=== PATIENT | male | born 1960 | race Caucasian/White ===

== ENCOUNTER 2016-07-08 11:28 | Emergency (ER) | payer OTHER ==
[2016-07-08 11:41] VITALS: BMI 30.4
[2016-07-08 11:49] VITALS: BP 123/76; PULSE 61; RESP 16; TEMP 97.9; O2SAT 100
--- NOTE | 2016-07-08 12:02 | ED PDOC ---
Arrival/HPI - General Chief Complaint: Back Pain Time Seen by Provider: 07/08/16 12:02 Historian: Patient - History of Present Illness Narrative History of Present Illness (Text): 07/08/16 12:02 This 55 yo male with pmh chronic back pain, hyperlipedimia, presents to this ED c/o left lower back pain x 3 days. 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 Patient denies trauma, heavy lifting, weakness, paresthesias, GI/ incontinence, saddle anesthesias, urinary retention, hematuria, urinary symptoms, penile discharge, or testicular pain. Time/Duration: < week Symptom Onset: Gradual Symptom Course: Worsening Quality: Aching Context: Home, Work Past Medical History - Provider Review Nursing Documentation Reviewed: Yes - Past History Past History: Non-Contributing - Infectious Disease Hx of Infectious Diseases: None - Tetanus Immunization Tetanus Immunization: Unknown - Past Medical History Past Medical History: No Previous - Cardiac Hx Cardiac Disorders: Yes - Pulmonary Hx Respiratory Disorders: No - Neurological Hx Neurological Disorder: No - HEENT Hx HEENT Disorder: No - Renal Hx Renal Disorder: No - Endocrine/Metabolic Hx Endocrine Disorders: No - Hematological/Oncological Hx Blood Disorders: No - Integumentary Hx Dermatological Disorder: No - Musculoskeletal/Rheumatological Hx Musculoskeletal Disorders: Yes Hx Back Pain: Yes - Gastrointestinal Hx Gastrointestinal Disorders: No - Genitourinary/Gynecological Hx Genitourinary Disorders: No - Psychiatric Hx Psychophysiologic Disorder: No Hx Anxiety: No Hx Bipolar Disorder: No Hx Depression: No Hx Emotional Abuse: No Hx Hallucinations: No Hx Panic Disorder: No Hx Post Traumatic Stress Disorder: No Hx Psychosis: No Hx Physical Abuse: No Hx Schizophrenia: No Hx Sexual Abuse: No Hx Substance Use: No - Past Surgical History Past Surgical History: No Previous - Anesthesia Hx Anesthesia: Yes Hx Anesthesia Reactions: No Hx Malignant Hyperthermia: No - Suicidal Assessment Feels Threatened In Home Enviroment: No Family/Social History - Physician Review Nursing Documentation Reviewed: Yes Family/Social History: No Known Family HX Smoking Status: Never Smoked Hx Alcohol Use: No Hx Substance Use: No Hx Substance Use Treatment: No Allergies/Home Meds Allergies/Adverse Reactions: Allergies No Known Allergies Allergy (Verified 07/08/16 11:41) Home Medications: Home Meds Medication Instructions Recorded Confirmed Ergocalciferol (Vitamin D2) 50,000 unit PO QWK 04/20/16 07/08/16 [Vitamin D] Simvastatin 10 mg PO DAILY 04/20/16 07/08/16 [place]-3 Fatty Acids [Fish Oil] 1,200 mg PO BID 07/08/16 07/08/16 Review of Systems - Review of Systems Constitutional: Normal. absent: Fatigue, Weight Change, Fevers Eyes: Normal. absent: Vision Changes ENT: Normal. absent: Sore Throat Respiratory: Normal. absent: SOB, Cough, Sputum, Wheezing Cardiovascular: Normal. absent: Chest Pain Gastrointestinal: Normal. absent: Abdominal Pain, Nausea, Vomiting Genitourinary Male: Normal. absent: Dysuria, Frequency, Hematuria Musculoskeletal: Back Pain. absent: Arthralgias, Neck Pain, Joint Swelling Skin: Normal. absent: Rash Neurological: Normal. absent: Headache, Dizziness, Focal Weakness, Gait Changes , Speech Changes, Facial Droop, Disequilibrium, Seizure Endocrine: Normal Hemo/Lymphatic: Normal Psychiatric: Normal Physical Exam Vital Signs Temp Pulse Resp BP Pulse Ox 07/08/16 11:49 97.9 F 61 16 123/76 100 Temperature: Afebrile Blood Pressure: Normal Pulse: Regular Respiratory Rate: Normal Appearance: Positive for: Well-Appearing, Non-Toxic, Comfortable Pain Distress: None Mental Status: Positive for: Alert and Oriented X 3 - Systems Exam Head: Present: Atraumatic, Normocephalic Pupils: Present: PERRL Extroacular Muscles: Present: EOMI Conjunctiva: Present: Normal Mouth: Present: Moist Mucous Membranes Neck: Present: Normal Range of Motion. No: Meningeal Signs Respiratory/Chest: Present: Clear to Auscultation, Good Air Exchange. No: Respiratory Distress, Accessory Muscle Use, Wheezes, Retracting, Rhonchi Cardiovascular: Present: Regular Rate and Rhythm, Normal S1, S2. No: Murmurs Abdomen: Present: Normal Bowel Sounds. No: Tenderness, Distention, Peritoneal Signs, Rebound, Guarding Back: Present: Normal Inspection, Paraspinal Tenderness ((+) mild left paravertebral tenderness. No vertebral point tenderness. No vertebral samson off. No skin rash over site of back pain). No: CVA Tenderness, Midline Tenderness, Pain with Leg Raise Upper Extremity: Present: Normal Inspection. No: Cyanosis, Edema Lower Extremity: Present: Normal Inspection. No: Edema Neurological: Present: GCS=15, CN II-XII Intact, Speech Normal, Motor Func Grossly Intact, Normal Sensory Function, Normal Cerebellar Funct, Norm Deep Tendon Reflexes, Gait Normal, Memory Normal Skin: Present: Warm, Dry, Normal Color. No: Rashes Psychiatric: Present: Alert, Oriented x 3, Normal Insight, Normal Concentration Medical Decision Making ED Course and Treatment: 07/08/16 12:09 Re-evaluation. Patient feels better. Discussed results and plan with patient who expresses understanding. All questions answered and there is agreement with the plan to discharge home with instructions. Patient stable for discharge. Return if symptoms persist or worsen. Re-evaluation Time: 12:09 Reassessment Condition: Re-examined, Improved Disposition/Present on Arrival - Present on Arrival Any Indicators Present on Arrival: No History of DVT/PE: No History of Uncontrolled Diabetes: No Urinary Catheter: No History of Decub. Ulcer: No History Surgical Site Infection Following: None - Disposition Have Diagnosis and Disposition been Completed?: Yes Diagnosis: Chronic low back pain, Back pain Disposition: HOME/ ROUTINE Disposition Time: 12:10 Patient Plan: Discharge Condition: GOOD Discharge Instructions (ExitCare): Chronic Back Pain (ED) Additional Instructions: Call private doctor for follow up visit in 1-2 days. take medication as instructed. Return to emergency if symptoms worsen. Prescriptions: Naproxen 500 mg PO BID PRN #20 tab PRN Reason: Pain, Severe (8-10) Methocarbamol [Robaxin-750] 750 mg PO TID #20 tablet Referrals: [facility] [Outside] - Follow up with primary Forms: WORK NOTE
== END 2016-07-08 12:37 | disposition home or self-care (01) ==
LOC: ED 11:28
DX: M54.5 Low back pain (principal); G89.29 Other chronic pain
CPT/HCPCS: 96372; 99282; J1885

== ENCOUNTER 2017-09-06 10:27 | Emergency (ER) | payer OTHER ==
[2017-09-06 10:28] VITALS: BMI 30.4
[2017-09-06 10:45] VITALS: TEMP 98.3
--- NOTE | 2017-09-06 11:24 | ED PDOC ---
Arrival/HPI - General Chief Complaint: Back Pain Time Seen by Provider: 09/06/17 10:49 Historian: Patient - History of Present Illness Narrative History of Present Illness (Text): 09/06/17 11:05 You were treated in the ED today, with history of chronic back pain and hyperlipidemia, now presenting with left lower lumbar back discomfort after a fall 3 days ago, which has not improved after given an injection for pain and flexeril by PMD otherwise without any spinal tenderness, redness, head injury, loss of consciousness, fever/nausea/vomiting/headache/dizziness/difficulty breathing/chest pain/abdomen pain/numbness/tingling/loss of limb function/loss of bowel and bladder function/pain with urination or any other complaints. Time/Duration: < week (3 days) Symptom Onset: Gradual Symptom Course: Unchanged Quality: Aching Activities at Onset: Other (Fall) Context: Home Past Medical History - Provider Review Nursing Documentation Reviewed: Yes - Past History Past History: Non-Contributing - Infectious Disease Hx of Infectious Diseases: None - Tetanus Immunization Tetanus Immunization: Unknown - Past Medical History Past Medical History: No Previous - Cardiac Hx Cardiac Disorders: Yes - Pulmonary Hx Respiratory Disorders: No - Neurological Hx Neurological Disorder: No - HEENT Hx HEENT Disorder: No - Renal Hx Renal Disorder: No - Endocrine/Metabolic Hx Endocrine Disorders: No - Hematological/Oncological Hx Blood Disorders: No - Integumentary Hx Dermatological Disorder: No - Musculoskeletal/Rheumatological Hx Musculoskeletal Disorders: Yes Hx Back Pain: Yes - Gastrointestinal Hx Gastrointestinal Disorders: No - Genitourinary/Gynecological Hx Genitourinary Disorders: No - Psychiatric Hx Psychophysiologic Disorder: No Hx Anxiety: No Hx Bipolar Disorder: No Hx Depression: No Hx Emotional Abuse: No Hx Hallucinations: No Hx Panic Disorder: No Hx Post Traumatic Stress Disorder: No Hx Psychosis: No Hx Physical Abuse: No Hx Schizophrenia: No Hx Sexual Abuse: No Hx Substance Use: No - Past Surgical History Past Surgical History: No Previous - Anesthesia Hx Anesthesia: Yes Hx Anesthesia Reactions: No Hx Malignant Hyperthermia: No - Suicidal Assessment Feels Threatened In Home Enviroment: No Family/Social History - Physician Review Nursing Documentation Reviewed: Yes Family/Social History: No Known Family HX Smoking Status: Never Smoked Hx Alcohol Use: No Hx Substance Use: No Hx Substance Use Treatment: No Allergies/Home Meds Allergies/Adverse Reactions: Allergies No Known Allergies Allergy (Verified 09/06/17 10:38) Home Medications: Home Meds Medication Instructions Recorded Confirmed Ergocalciferol (Vitamin D2) 50,000 unit PO QWK 04/20/16 09/06/17 [Vitamin D] Simvastatin 10 mg PO DAILY 04/20/16 09/06/17 [place]-3 Fatty Acids [Fish Oil] 1,200 mg PO BID 07/08/16 09/06/17 Cyclobenzaprine [Flexeril] 10 mg PO Q8 PRN 09/06/17 09/06/17 Lidocaine 4% [Lidocaine 4% 50 ml 1 appl TOP PRN PRN 09/06/17 09/06/17 Topical (or)] Review of Systems - Physician Review All systems were reviewed & negative as marked: Yes - Review of Systems Constitutional: Normal. absent: Fevers Eyes: Normal ENT: Normal Respiratory: Normal. absent: SOB Cardiovascular: Normal. absent: Chest Pain Gastrointestinal: Normal. absent: Abdominal Pain, Diarrhea, Nausea, Vomiting Genitourinary Male: Normal. absent: Dysuria Musculoskeletal: Back Pain (left lower lumbar muscular discomfort; ) Skin: Normal Neurological: Normal. absent: Headache, Dizziness Endocrine: Normal Hemo/Lymphatic: Normal Psychiatric: Normal Physical Exam Vital Signs Reviewed: Yes Vital Signs Temp Pulse Resp BP Pulse Ox 09/06/17 10:41 98.3 F 66 16 124/81 99 Temperature: Afebrile Blood Pressure: Normal Pulse: Regular Respiratory Rate: Normal Appearance: Positive for: Well-Appearing, Non-Toxic, Comfortable Pain Distress: None Mental Status: Positive for: Alert and Oriented X 3 - Systems Exam Head: Present: Atraumatic, Normocephalic Pupils: Present: PERRL Extroacular Muscles: Present: EOMI Conjunctiva: Present: Normal Neck: Present: Normal Range of Motion Respiratory/Chest: Present: Clear to Auscultation, Good Air Exchange. No: Respiratory Distress, Accessory Muscle Use Cardiovascular: Present: Regular Rate and Rhythm, Normal S1, S2. No: Murmurs Abdomen: No: Tenderness, Distention, Peritoneal Signs Back: Present: Other (left lower lumbar adjacent to the spine muscular discomfort; no redness or swelling.). No: Midline Tenderness Upper Extremity: Present: Normal Inspection. No: Cyanosis, Edema Lower Extremity: Present: Normal Inspection. No: Edema Neurological: Present: GCS=15, CN II-XII Intact, Speech Normal Skin: Present: Warm, Dry, Normal Color. 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 You were otherwise breathing easily, smiling at bedside, good strength/sensation, walking easily, clear lungs, no abdomen tenderness or pulsatile masses, no spinal tenderness but mild left lower back muscle discomfort without any redness, no fever temp 98.3, stable heart rate 66, stable breathing rate 16, excellent oxygen level 99% room air, normal blood pressure 124/81, lumbar spine xray radiology No acute compression fractures nor retropulsed fragments. Multilevel degenerative spondylosis as above., tramadol, toradol, observation done in the ED with improvement, counselled to rest and use heating pads to muscle area for relief, and thus discharged home with your who is driving. 1. Recommend motrin as directed for mild pain. continue your flexeril as directed for muscle relief don't work/ drive/drink alcohol when using. 2. Recommend tramadol as directed for breakthrough pain and dont' work/drive/drink alcohol when using. 3. Recommend follow-up primary care 2-3 days to review symptoms. 4. If any worsening pain, fever, chills, nausea, vomiting, difficulty breathing, numbness, loss of limb function, pain with urination or any medical condition then return to the ED. Plan: -- Toradol -- Ultram -- X-ray of Lumbar spine Progress Note: 09/06/17 13:05 X-ray of Lumbar Spine reviewed by radiologist, shows: FINDINGS: BONES: No evidence of acute compression fractures no retropulsed fragments. The vertebral bodies exhibit normal stature. Very slight levoscoliosis centered at the L2-L3 level. DISC SPACES: Disc space heights maintained. . Multilevel large anterolateral partially bridging osteophyte formation present the throughout the lumbar and lower thoracic spine. Facets are hypertrophic L5-S1 through the L 2 L3 levels in somewhat decreasing order of severity. All large OTHER FINDINGS: None. IMPRESSION: No acute compression fractures nor retropulsed fragments. Multilevel degenerative spondylosis as above. 09/06/17 13:12 09/06/17 13:12 09/06/17 13:15 Reassessment Condition: Re-examined, Improved - RAD Interpretation Radiology Orders: 09/06/17 11:07 LS SPINE WITH OBL > 18 YRS OLD [RAD] Stat Assistant Front Desk Manager: Radiologist - Medication Orders Current Medication Orders: Discontinued Medications Ketorolac Tromethamine (Toradol) 60 mg IM STAT STA Stop: 09/06/17 11:06 Last Admin: 09/06/17 11:48 Dose: 60 mg MAR Pain Assessment Document 09/06/17 11:48 HI (Rec: 09/06/17 11:48 HI [id number]) Pain Reassessment Is this a pain reassessment? No Sleep Is patient sleeping during reassessment? No Presence of Pain Presence of Pain Yes Pain Scale Used Pain Scale Used Numeric Location Left, Right or Bilateral Left Upper or Lower Lower Pain Location Body Site Back Description Description Constant IM Administration Charges Document 09/06/17 11:48 HI (Rec: 09/06/17 11:48 HI [id number]) Injection Site MAR Injection Site Left Gluteus Phillip Charges for Administration # of IM Administrations 1 Re-Assess: MAR Pain Assessment Document 09/06/17 12:48 HI (Rec: 09/06/17 13:02 HI [id number]) Pain Reassessment Is this a pain reassessment? Yes Sleep Is patient sleeping during reassessment? No Presence of Pain Presence of Pain No Tramadol HCl (Ultram) 50 mg PO STAT STA Stop: 09/06/17 11:06 Last Admin: 09/06/17 11:48 Dose: 50 mg MAR Pain Assessment Document 09/06/17 11:48 HI (Rec: 09/06/17 11:48 HI [id number]) Pain Reassessment Is this a pain reassessment? No Sleep Is patient sleeping during reassessment? No Presence of Pain Presence of Pain Yes Pain Scale Used Pain Scale Used Numeric Location Left, Right or Bilateral Left Upper or Lower Lower Pain Location Body Site Back Description Description Constant Intensity of Pain at present 7 Pain Behavior Facial Grimacing Re-Assess: RODOLFO Pain Assessment Document 09/06/17 12:48 HI (Rec: 09/06/17 13:02 HI [id number]) Pain Reassessment Is this a pain reassessment? Yes Sleep Is patient sleeping during reassessment? No Presence of Pain Presence of Pain No - Scribe Statement The provider has reviewed the documentation as recorded by the Scribe Myles Cruz. All medical record entries made by the Scribe were at my direction and personally dictated by me. I have reviewed the chart and agree that the record accurately reflects my personal performance of the history, physical exam, medical decision making, and the department course for this patient. I have also personally directed, reviewed, and agree with the discharge instructions and disposition. Disposition/Present on Arrival - Present on Arrival Any Indicators Present on Arrival: No History of DVT/PE: No History of Uncontrolled Diabetes: No Urinary Catheter: No History of Decub. 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 You were otherwise breathing easily, smiling at bedside, good strength/sensation, walking easily, clear lungs, no abdomen tenderness or pulsatile masses, no spinal tenderness but mild left lower back muscle discomfort without any redness, no fever temp 98.3, stable heart rate 66, stable breathing rate 16, excellent oxygen level 99% room air, normal blood pressure 124/81, lumbar spine xray radiology No acute compression fractures nor retropulsed fragments. Multilevel degenerative spondylosis as above., tramadol, toradol, observation done in the ED with improvement, counselled to rest and use heating pads to muscle area for relief, and thus discharged home with your who is driving. 1. Recommend motrin as directed for mild pain. continue your flexeril as directed for muscle relief don't work/ drive/drink alcohol when using. 2. Recommend tramadol as directed for breakthrough pain and dont' work/drive/drink alcohol when using. 3. Recommend follow-up primary care 2-3 days to review symptoms. 4. If any worsening pain, fever, chills, nausea, vomiting, difficulty breathing, numbness, loss of limb function, pain with urination or any medical condition then return to the ED. Prescriptions: traMADol [Ultram] 50 mg PO DAILY PRN 3 Days #3 tab PRN Reason: breakthrough pain Referrals: Elba Lopez MD [Primary Care Provider] - Follow up with primary Forms: [facility] [facility] (Telugu), WORK NOTE
--- NOTE | 2017-09-06 13:02 | RAD ---
PROCEDURE: Radiographs of the Lumbar Spine. HISTORY: 56M, fall/injury lumbar discomfort COMPARISON: No prior. FINDINGS: BONES: No evidence of acute compression fractures no retropulsed fragments. The vertebral bodies exhibit normal stature. Very slight levoscoliosis centered at the L2-L3 level. DISC SPACES: Disc space heights maintained. . Multilevel large anterolateral partially bridging osteophyte formation present the throughout the lumbar and lower thoracic spine. Facets are hypertrophic L5-S1 through the L 2 L3 levels in somewhat decreasing order of severity. All large OTHER FINDINGS: None. IMPRESSION: No acute compression fractures nor retropulsed fragments. Multilevel degenerative spondylosis as above.
[2017-09-06 13:48] VITALS: BP 125/87; PULSE 72; RESP 18; O2SAT 98
== END 2017-09-06 13:27 | disposition home or self-care (01) ==
LOC: ED 10:27
DX: S39.012A Strain of muscle, fascia and tendon of lower back, initial encounter (principal); W19.XXXA Unspecified fall, initial encounter; E11.9 Type 2 diabetes mellitus without complications; E78.5 Hyperlipidemia, unspecified; I10 Essential (primary) hypertension
CPT/HCPCS: 72110; 96372; 99283; J1885